=== PATIENT | male | born 1965 | race Two or more races ===

== ENCOUNTER 2020-03-21 23:34 | Emergency (ER) | payer OTHER ==
[~2020-03-21] VITALS: Ht 175.3 cm; Wt 102.5 kg
== END 2020-03-22 13:53 | disposition home or self-care (01) ==
LOC: ER 23:34
DX: J12.81 Pneumonia due to SARS-associated coronavirus (principal)

== ENCOUNTER 2020-03-27 23:17 | Emergency (ER) | payer OTHER ==
[~2020-03-27] VITALS: Ht 175.3 cm; Wt 103.0 kg
[2020-03-27] MEDS ORDERED: VIT C (23:31)
[2020-03-28] MEDS ORDERED: FORTAMET500 MG PO (06:24)
== END 2020-03-28 06:39 | disposition home or self-care (01) ==
LOC: ER 23:17
DX: R35.8 Other polyuria (principal); R73.9 Hyperglycemia, unspecified

== ENCOUNTER 2022-05-08 02:45 | Emergency (ER) | payer OTHER ==
[~2022-05-08] VITALS: Ht 177.8 cm; Wt 97.5 kg
[~2022-05-08 02:45] MED LIST: FORTAMET500 MG PO; VIT C
== END 2022-05-08 11:42 | disposition home or self-care (01) ==
LOC: ER 02:45
DX: R07.89 Other chest pain (principal); M94.0 Chondrocostal junction syndrome [Tietze]; R06.02 Shortness of breath; E66.09 Other obesity due to excess calories; E11.9 Type 2 diabetes mellitus without complications; E78.00 Pure hypercholesterolemia, unspecified; K21.9 Gastro-esophageal reflux disease without esophagitis; M19.90 Unspecified osteoarthritis, unspecified site; Z86.16 Personal history of COVID-19

== ENCOUNTER 2025-07-17 05:41 | Emergency (ER) | payer OTHER ==
[~2025-07-17] VITALS: Ht 180.3 cm; Wt 92.1 kg
[2025-07-17 06:01] VITALS: BP 140/98; O2SAT 95
[2025-07-17] MEDS ORDERED: LIPITOR40 MG PO (06:06)
[2025-07-17] MEDS ORDERED: TRULICITY1.5 MG/0.5 SQ (06:06)
[2025-07-17] MEDS ORDERED: KETOROLAC TROMETHAMINE 30 MG VIAL IM STA (07:15)
[2025-07-17] MEDS ORDERED: DEXAMETHASONE SODIUM PHOSPHATE 4 MG/ML VIAL IM STA (07:15)
[2025-07-17] MEDS ORDERED: ORPHENADRINE CITRATE 100 MG TABLET PO ONE (07:30)
== END 2025-07-17 12:11 | disposition left against medical advice (07) ==
LOC: ER 05:42
DX: G89.11 Acute pain due to trauma (principal); M25.551 Pain in right hip; M25.552 Pain in left hip; M54.59 Other low back pain; M25.511 Pain in right shoulder; W19.XXXA Unspecified fall, initial encounter; E11.9 Type 2 diabetes mellitus without complications